=== PATIENT | male | born 1995 | race African-American/Black ===

== ENCOUNTER 2016-08-14 21:52 | Emergency (ER) | payer OTHER ==
[2016-08-14 21:58] VITALS: BP 135/45; PULSE 56; RESP 16; TEMP 98.4; O2SAT 95
--- NOTE | 2016-08-14 22:34 | EDPHY ---
H & P Stated Complaint: LACERTION TO LEFT HAND INDEX FINGER Time Seen by Provider: 08/14/16 22:24 HPI/ROS: HPI: The patient presents with left index finger laceration that was sustained about an hour and half prior to presentation while the patient was at work. He was cutting vegetables and the knife slipped and cut his left index finger. He had pain immediately and some bleeding. He has mild, achy pain throughout his finger. He denies any numbness or tingling. REVIEW OF SYSTEMS Constitutional: No fever, no chills. Musculoskeletal: No back pain. Skin: No rashes. Neurological: No headache. PMHx: Healthy TRAUMA PHYSICAL General Appearance: Alert, no distress Head: Atraumatic Respiratory: breathing comfortably Extremities: Left index finger with 4 cm diagonal V shaped laceration involving the distal and middle phalanx region with small hook of active bleeding, brisk cap refill, sensation intact to light touch, normal finger flexion and extension at DI P and PIP Neurological: A&Ox3, GCS=15,normal motor function with 5/5 strength in all 4 extremities, normal sensory exam Source: Patient Exam Limitations: No limitations - Personal History Current Tetanus/Diphtheria Vaccine: Yes Current Tetanus Diphtheria and Acellular Pertussis (TDAP): Yes - Medical/Surgical History Hx Asthma: No Hx Chronic Respiratory Disease: No Hx Diabetes: No Hx Cardiac Disease: No Hx Renal Disease: No Hx Cirrhosis: No Hx Alcoholism: No Hx HIV/AIDS: No Hx Splenectomy or Spleen Trauma: No Other PMH: DENIES Constitutional: Initial Vital Signs Temperature (C) 36.9 C 08/14/16 21:54 Heart Rate 56 L 08/14/16 21:54 Respiratory Rate 16 08/14/16 21:54 Blood Pressure 135/45 H 08/14/16 21:54 O2 Sat (%) 95 08/14/16 21:54 O2 Delivery Mode Room Air Allergies/Adverse Reactions: No Known Allergies Allergy (Unverified 08/14/16 21:58) Home Medications: Medication Instructions Recorded NK [No Known Home Meds] 08/14/16 Medical Decision Making Procedures: LACERATION REPAIR Procedure: Laceration repair. Verbal consent was obtained from the patient. The linear 4 cm laceration on the left lateral index finger was anesthetized using bupivacaine 0.5% 3 mL in a digital block. The wound was scrubbed, draped and explored to its base with a gloved finger. There were no deep structures involved. No tendon injury was identified. . The wound was repaired with simple interrupted sutures of 4.0 nylon. The wound repair was simple/complex. The procedure was performed by myself. SPLINT Procedure: Splint placement. A foam finger splint was applied to the left index finger by the tech. After application of the splint I returned and re-examined the patient. The splint was adequately immobilizing the joint and distal to the splint the patient's circulation and sensation was intact. Differential Diagnosis: This is a 21-year-old male who presents from work with a finger laceration sustained an hour and a half ago. There is no sign of foreign body, fracture, tendon or nerve involvement. Plan for laceration repair and update of tetanus. - Data Points Medications Given: Discontinued Medications Diphtheria/Tetanus/Acell Pertussis (Boostrix) 0.5 ml IM .ONCE ONE Stop: 08/14/16 22:38 Last Admin: 08/14/16 22:55 Dose: 0.5 ml Departure - Departure Disposition: Home, Routine, Self-Care Clinical Impression: Laceration of finger of left hand Qualifiers: Encounter type: initial encounter Qualified Code(s): S61.219A - Laceration without foreign body of unspecified finger without damage to nail, initial encounter Condition: Good Instructions: Care For Your Stitches (ED), Laceration (ED) Additional Instructions: Please return to the emergency room in 7 days to have your stitches removed.
[2016-08-14] MEDS ORDERED: TDAP ADULT 0.5 ML INJ (BOOSTRIX) IM ONE (22:37)
== END 2016-08-14 23:48 | disposition home or self-care (01) ==
PROC: 0HQGXZZ Repair Left Hand Skin, External Approach (ICD-10-PCS; principal; 2016-08-14)
DX: S61.211A Laceration without foreign body of left index finger without damage to nail, initial encounter (principal); Z23 Encounter for immunization; W26.0XXA Contact with knife, initial encounter; Y92.89 Other specified places as the place of occurrence of the external cause; Y99.0 Civilian activity done for income or pay; Y93.89 Activity, other specified